=== PATIENT | male | born 1995 | race African-American/Black ===

== ENCOUNTER 2019-02-19 13:30 | Emergency (ER) | payer OTHER ==
[~2019-02-19] VITALS: Ht 182.9 cm; Wt 87.9 kg
[~2019-02-19 13:30] MED LIST: ACET500C5 PO
[2019-02-19 13:38] VITALS: BP 147/86; PULSE 62; RESP 16; Ht 182.9 cm; Wt 87.9 kg
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
== END 2019-02-19 14:04 | disposition home or self-care (01) ==
LOC: E/R 13:30
DX: S80.211A Abrasion, right knee, initial encounter (principal); S80.212A Abrasion, left knee, initial encounter; S39.92XA Unspecified injury of lower back, initial encounter; S19.9XXA Unspecified injury of neck, initial encounter; V49.50XA Passenger injured in collision with unspecified motor vehicles in traffic accident, initial encounter
CPT/HCPCS: 99282